=== PATIENT | female | born 1950 | race Caucasian/White ===

== ENCOUNTER → 2017-08-13 | Outpatient (CLI) | payer OTHER ==
[~2017-08-13] MED LIST: ACIPHEX; ALLEGRA30 MG PO; BUSPAR; CLONAZEPAM; EVISTA; LEVOTHROID; MIRTAZAPINE; NASONEX; NORCO 5-325 TA1 EACH PO; PROMETRIUM; SEROQUEL; SINGULAIR; SONATA5 M1 PO
== END ==
LOC: M.MRI 10:55
DX: R41.82 Altered mental status, unspecified (principal); R27.9 Unspecified lack of coordination

== ENCOUNTER → 2017-10-09 | Outpatient (CLI) | payer OTHER | LOC: M.MRI 16:27 | DX: M47.892 Other spondylosis, cervical region (principal) ==

== ENCOUNTER → 2018-02-26 | Outpatient (CLI) | payer OTHER | LOC: M.RAD 02-16 08:33 | DX: Z12.31 Encounter for screening mammogram for malignant neoplasm of breast (principal); Z13.820 Encounter for screening for osteoporosis; M85.89 Other specified disorders of bone density and structure, multiple sites; Z78.0 Asymptomatic menopausal state ==